=== PATIENT | male | born 1940 | race Two or more races ===

== ENCOUNTER 2019-08-18 19:45 | Emergency (ER) | payer OTHER ==
[~2019-08-18] VITALS: Ht 165.1 cm; Wt 68.0 kg
[2019-08-18] MEDS ORDERED: LOSARTAN (20:32)
== END 2019-08-19 01:05 | disposition home or self-care (01) ==
LOC: ER 19:45
DX: J45.901 Unspecified asthma with (acute) exacerbation (principal)